=== PATIENT | male | born 1990 | race Hispanic/Latino ===

== ENCOUNTER 2022-03-17 09:53 | Emergency (ER) | payer SELFPAY ==
[2022-03-17] MEDS: Bupivacaine 0.5% 10 ML SDV INJECT ONE (11:30)
[2022-03-17] MEDS: Diphtheria,Pertussis(Acell),Tetanus Vaccine 0.5 ML Syringe IM ONE (11:30)
[2022-03-17] MEDS: Lidocaine 1% 5 ML VIAL INJECT ONE (11:30)
[2022-03-17] MEDS: ceFAZolin 2 GM in Premix Bag 1 BAG IV ONE (11:31)
[2022-03-17] MEDS: Acetaminophen/oxyCODONE 325-5 MG Tab PO ONE (11:32)
[2022-03-17] MEDS: Ketorolac 30 MG/ML SDV IVPUSH ONE (11:40)
[2022-03-17] MEDS: Bacitracin Oint 1 GM U/D Packet TOP ONE (12:53)
== END 2022-03-17 13:13 | disposition home or self-care (01) ==
LOC: MW.ED 09:53
DX: S62.661B Nondisplaced fracture of distal phalanx of left index finger, initial encounter for open fracture (principal); S62.663A Nondisplaced fracture of distal phalanx of left middle finger, initial encounter for closed fracture; Z23 Encounter for immunization; W23.1XXA Caught, crushed, jammed, or pinched between stationary objects, initial encounter; Y92.69 Other specified industrial and construction area as the place of occurrence of the external cause
CPT/HCPCS: 12001; 73130; 90471; 90715; 96365; 96375; 99283; A9270; J0690; J1885; J3490; 99282